=== PATIENT | male | born 1940 | race Caucasian/White ===

== ENCOUNTER 2017-08-02 11:00 | Outpatient (RCR) | payer MEDICARE, OTHER, SELFPAY | END 2017-08-02 13:00 | disposition home or self-care (01) | LOC: PT 11:00 | PROVIDERS: Family Provider Internal Medicine Adolescent Medicine; PCP Internal Medicine Adolescent Medicine; Visit Provider Internal Medicine Adolescent Medicine | DX: M16.12 Unilateral primary osteoarthritis, left hip (principal) | CPT/HCPCS: 97010; 97033; 97110 ==

== ENCOUNTER → 2017-12-09 08:55 | Outpatient (CLI) | payer MEDICARE, OTHER, SELFPAY ==
[2017-12-09 09:18] LABS: Blood Urea Nitrogen 14 mg/dL (7-18); Creatinine,Serum 1.04 mg/dL (0.70-1.30); Estimated Glomerular Filt Rate 69 ml/min (>60); GFR (African American) 83 ML/MIN (>60)
--- NOTE | 2017-12-09 09:24 | CT_ITS ---
CT abdomen pelvis wo/w con CLINICAL HISTORY: Generalized abdominal pain, nausea vomiting and diarrhea and hematuria TECHNIQUE: Axial images obtained with sagittal and coronal reformats. All CT scans at this facility use one or more dose reduction techniques, viz.: automated exposure control; ma/kV adjustment per patient size (including targeted exams where dose is matched to indication; i.e. head) or iterative reconstruction technique. COMPARISON: CT scan abdomen pelvis stone protocol 09/21/2011 PROCEDURE: IV contrast only was used FINDINGS: Lung bases: There is mild post inflammatory scarring in both lower lobes and posterior gutters. ABDOMEN: Liver: No masses or biliary dilatation. Gallbladder: Nondistended. No radio opaque stones. Pancreas: No masses or peripancreatic fluid collections. Spleen: Unremarkable. Adrenals: Unremarkable Kidneys/ureters: Both kidneys are grossly normal in size of the right kidney is slightly smaller than left. There is prominent pyelocalyectasis of the left collecting system and there is approximate 1 cm calculus sitting at the UP junction. The right kidney and right renal pelvis are grossly normal. Neither ureter is dilated. There are multiple calcination both sides the pelvis likely phleboliths. These were seen on the previous CT exam. . Stomach bowel: Nondistended. No obvious mass or thickening, there is moderate stool and gas seen throughout the colon. The small bowel is grossly normal.. Peritoneum: No abnormal fluid collections. No obvious inflammatory changes. Lymph nodes: No enlarged lymph nodes apparent. Vasculature: No evidence of abdominal aortic aneurysm. There is prominent diffuse arteriosclerotic calcification of the infrarenal aorta and proximal iliac arteries but there is no aneurysm. No retroperitoneal hemorrhage evident. Bones: There is moderate multilevel degenerative changes of the lower thoracic and lumbar spine. PELVIS: Reproductive: Unremarkable, the prostate is moderately enlarged Bladder: Moderately distended with no calculi seen. There is a small diverticulum right side of the bladder measuring 1.8 cm. Appendix: No findings to suggest acute appendicitis. IMPRESSION: Moderate obstructive uropathy left kidney secondary to 1 cm calculus sitting at the UPJ, no other significant abdominal or pelvic pathology identified
--- NOTE | 2017-12-09 09:47 | HMH.ITSHM ---
MYRBETRIQ,AMLODIPINE METOPROLOL,LISINOPRIL,ASA ROCHLORIDE POT CHL SIMVASTATIN METFORMIN A;;PRPURIONOL RANITINDE
== END ==
PROVIDERS: Family Provider Internal Medicine Adolescent Medicine; PCP Internal Medicine Adolescent Medicine; Visit Provider Urology
DX: R31.9 Hematuria, unspecified (principal)
CPT/HCPCS: 36415; 74170; 82565; 84520; Q9967

== ENCOUNTER → 2018-03-21 10:18 | Outpatient (CLI) | payer MEDICARE, OTHER, SELFPAY ==
--- NOTE | 2018-03-21 10:21 | XR_ITS ---
XR KUB HISTORY: Follow-up nephrolithiasis ITS.REASON: Kidney Stones ORDERING PHYSICIAN: Devon Linares MD PATIENT AGE: 77 years COMPARISON: 12/09/2017 FINDINGS: The previous CT scan demonstrated a 9 mm calculus in the left ureteropelvic junction. That is no longer apparent. Multiple pelvic calcifications are present. There are osteoarthritic changes of the hips and there is osteophytosis with ankylosis of the thoracic and lumbar spine. No obvious renal or ureteral calculi. IMPRESSION: 1. No obvious renal or ureteral calculi. 2. Previously noted left UPJ stone no longer apparent
== END ==
PROVIDERS: PCP Internal Medicine Adolescent Medicine; Visit Provider Urology
DX: N20.0 Calculus of kidney (principal)
CPT/HCPCS: 74018

== ENCOUNTER → 2018-07-18 11:07 | Outpatient (CLI) | payer MEDICARE, OTHER, SELFPAY ==
--- NOTE | 2018-07-18 11:12 | XR_ITS ---
XR KUB HISTORY: ITS.REASON: Kidney Stones ORDERING PHYSICIAN: Devon Linares MD PATIENT AGE: 77 years COMPARISON: 03/21/2018 FINDINGS: A 4 mm calcific density overlies the lower pole the left kidney. There are multiple pelvic phleboliths. Degenerative changes are present in the hips and spine. IMPRESSION: 4 mm left nephrolithiasis
== END ==
PROVIDERS: PCP Internal Medicine Adolescent Medicine; Visit Provider Urology
DX: N20.0 Calculus of kidney (principal)
CPT/HCPCS: 74018

== ENCOUNTER → 2019-01-16 12:01 | Outpatient (CLI) | payer MEDICARE, OTHER, SELFPAY ==
--- NOTE | 2019-01-16 12:06 | XR_ITS ---
PROCEDURE: XR KUB CLINICAL INDICATION: kidney stones COMPARISON: ABDPELWW CT abdomen pelvis wo/w con from 12/09/2017 FINDINGS: There is a 4 mm calcific density in the left mid abdominal region consistent with left renal stone. Multiple pelvic phleboliths are present. Bridging osteophyte is present to the left at L3-L4. Degenerative disc disease is present at the lumbosacral junction and there are degenerative changes of the hips IMPRESSION: Left nephrolithiasis Dictated by: Grayson Maldonado MD 01/16/2019 12:42 Signed by: <Electronically signed by Grayson Maldonado MD in [place]> 01/16/2019 12:42
== END ==
PROVIDERS: PCP Internal Medicine Adolescent Medicine; Visit Provider Urology
DX: N20.0 Calculus of kidney (principal)
CPT/HCPCS: 74018

== ENCOUNTER → 2019-07-24 13:29 | Outpatient (CLI) | payer MEDICARE, OTHER, SELFPAY ==
--- NOTE | 2019-07-24 13:37 | XR_ITS ---
PROCEDURE: XR KUB CLINICAL INDICATION: kidney stone Left flank pain COMPARISON: ABDPELWW CT abdomen pelvis wo/w con from 12/09/2017 FINDINGS: There is a 4 mm stone overlying the mid polar region of the left kidney. There are multiple pelvic calcifications consistent with phleboliths. Exclude the possibility of a ureteral stone. Degenerative changes of the lumbar spine with flowing osteophytes on the left at L3-L4. Degenerative changes of the hips. IMPRESSION: Left nephrolithiasis Dictated by: Grayson Maldonado MD 07/24/2019 17:42 Electronically signed by Grayson Maldonado MD in [place] 07/24/2019 17:42
== END ==
PROVIDERS: PCP Internal Medicine Adolescent Medicine; Visit Provider Urology
DX: N20.0 Calculus of kidney (principal)
CPT/HCPCS: 74018

== ENCOUNTER → 2020-09-23 19:10 | Outpatient (CLI) | payer MEDICARE, OTHER, SELFPAY ==
[2020-09-23 19:22] LABS: Basophils # 0.1 K/mm3 (0-0.2); Basophils % 0.6 % (0.1-2.0); Eosinophils # 0.3 K/mm3 (0.0-0.4); Eosinophils % 3.6 % (0.1-12.0); Hematocrit 47.4 % (42.0-52.0); Hemoglobin 15.1 g/dL (14.1-18.0); Lymphocytes # 2.2 K/mm3 (0.7-4.5); Lymphocytes % 28.5 % (10-50); Mean Corpuscular HGB Conc 31.8 g/dL (31.8-35.4); Mean Corpuscular Hemoglobin 29.4 pg (27.0-31.2); Mean Corpuscular Volume 92.4 fl (80-94); Mean Platelet Volume 10.2 fl (7.4-10.4); Monocytes # 0.4 K/mm3 (0.1-1.0); Neutrophils # 4.8 K/mm3 (1.8-7.8); Neutrophils % 62.3 % (37.0-80.0); Platelet Count 159 K/mm3 (142-424); Red Blood Count 5.13 M/mm3 (4.60-6.20); White Blood Count 7.7 K/mm3 (4.8-10.8)
[2020-09-23 19:54] LABS: Alanine Aminotransferase 14 U/L (12-78); Albumin/Globulin Ratio 1.7 (1.1-1.8); Alkaline Phosphatase 80 U/L (38-126); Anion Gap 12.2 mEq/L (5-15); Aspartate Amino Transferase 21 U/L (17-59); Bilirubin,Total 0.7 mg/dl (0.2-1.3); Blood Urea Nitrogen 20 mg/dl (9-20); Calcium 9.1 mg/dl (8.4-10.2); Carbon Dioxide 24 mmol/L (22.0-30.0); Chloride 109 mmol/L (98-107); Chol/HDL Ratio 4.2 (1-3.5); Cholesterol 143 mg/dl (140-200); Estimated Glomerular Filt Rate 72 ml/min (>60); GFR (African American) 87 ML/MIN (>60); Globulin 2.3 g/dL (1.3-3.2); Glucose 123 mg/dl (74-100); HDL Cholesterol 34 mg/dl (40-60); Potassium 4.2 mmoL/L (3.5-5.1); Sodium 141 mmol/L (136-145); Total Protein,Serum 6.3 g/dl (6.3-8.2); Triglycerides 141 mg/dl (30-150); Uric Acid 5.6 mg/dl (3.5-8.5); VLDL Cholesterol 28 mg/dL (0-40)
[2020-09-23 19:56] LABS: Hemoglobin A1C 6.1 % (4.0-6.0)
[2020-09-23 20:05] LABS: Direct LDL Cholesterol 83.96 mg/dL (100-129)
== END ==
PROVIDERS: Visit Provider Internal Medicine Adolescent Medicine
DX: E78.5 Hyperlipidemia, unspecified (principal); E11.69 Type 2 diabetes mellitus with other specified complication; M1A.0710 Idiopathic chronic gout, right ankle and foot, without tophus (tophi)
CPT/HCPCS: 80053; 80061; 83036; 84550; 85025

== ENCOUNTER → 2021-04-20 16:38 | Outpatient (CLI) | payer MEDICARE, OTHER, SELFPAY ==
[2021-04-20 17:31] LABS: Alanine Aminotransferase 9 U/L (12-78); Albumin Level 3.5 g/dl (3.5-5.0); Albumin/Globulin Ratio 1.5 (1.1-1.8); Alkaline Phosphatase 66 U/L (38-126); Anion Gap 10.7 mEq/L (5-15); Aspartate Amino Transferase 21 U/L (17-59); Bilirubin,Total 0.3 mg/dl (0.2-1.3); Blood Urea Nitrogen 17 mg/dl (9-20); Calcium 8.7 mg/dl (8.4-10.2); Carbon Dioxide 28 mmol/L (22.0-30.0); Chloride 110 mmol/L (98-107); Estimated Glomerular Filt Rate 58 ml/min (>60); GFR (African American) 70 ML/MIN (>60); Globulin 2.3 g/dL (1.3-3.2); Glucose 135 mg/dl (74-100); Potassium 4.7 mmoL/L (3.5-5.1); Sodium 144 mmol/L (136-145); Total Protein,Serum 5.8 g/dl (6.3-8.2)
[2021-04-20 18:13] LABS: Hemoglobin A1C 5.4 % (4.0-6.0)
[2021-04-20 18:55] LABS: Basophils % 0.7 % (0.1-2.0); Eosinophils # 0.1 K/mm3 (0.0-0.4); Eosinophils % 1.5 % (0.1-12.0); Hematocrit 47.4 % (42.0-52.0); Hemoglobin 14.8 g/dL (14.1-18.0); Lymphocytes # 1.7 K/mm3 (0.7-4.5); Lymphocytes % 26.9 % (10-50); Mean Corpuscular HGB Conc 31.3 g/dL (31.8-35.4); Mean Corpuscular Volume 95.9 fl (80-94); Mean Platelet Volume 10.3 fl (7.4-10.4); Monocytes # 0.4 K/mm3 (0.1-1.0); Monocytes % 5.4 % (1.7-9.3); Neutrophils # 4.3 K/mm3 (1.8-7.8); Neutrophils % 65.6 % (37.0-80.0); Platelet Count 159 K/mm3 (142-424); Red Blood Count 4.95 M/mm3 (4.60-6.20); Red Cell Distribution Width 15.3 % (11.5-17.5); White Blood Count 6.5 K/mm3 (4.8-10.8)
== END ==
PROVIDERS: Visit Provider Internal Medicine Adolescent Medicine
DX: R73.9 Hyperglycemia, unspecified (principal)
CPT/HCPCS: 80053; 83036; 85025

== ENCOUNTER 2021-05-17 00:56 | Inpatient (IN) | payer MEDICARE, OTHER, SELFPAY ==
[2021-05-17] VITALS (33 sets, daily range): BP systolic 132–193; BP diastolic 54–95; PULSE 64–90; RESP 15–18; TEMP 36.5–36.9; O2SAT 96–100; BMI 28.0; BMI 27.2; BMI 24.8
--- NOTE | 2021-05-17 01:03 | CT_ITS ---
PROCEDURE INFORMATION: Exam: CT Abdomen And Pelvis With Contrast Exam date and time: 05/17/2021 1:03 AM Age: 80 years old Clinical indication: Abdominal pain; Generalized; Additional info: Pain and distention TECHNIQUE: Imaging protocol: Computed tomography of the abdomen and pelvis with contrast. Radiation optimization: All CT scans at this facility use at least one of these dose optimization techniques: automated exposure control; mA and/or kV adjustment per patient size (includes targeted exams where dose is matched to clinical indication); or iterative reconstruction. Contrast material: ISOVUE; Contrast volume: 75 ml; Contrast route: IV; COMPARISON: ABDPELWW CT abdomen pelvis wo/w con 12/09/2017 9:33 AM FINDINGS: Lungs: Nonspecific bibasilar opacities, favoring atelectasis or pneumonia. Several pulmonary granulomas. Heart: Trace pericardial effusion. Diaphragm: Large hiatal hernia. Liver: No suspicious mass. Gallbladder and bile ducts: Trace intrahepatic biliary duct prominence. Pancreas: No ductal dilation. No peripancreatic inflammatory changes. Spleen: Several splenic granulomas. Adrenal glands: No mass. Kidneys and ureters: Nonobstructing calculus in the left kidney. [id number] left-sided hydroureteronephrosis. Partially exophytic solid lesion in the left posterior kidney measuring up to 4.0 cm, consistent with renal cell carcinoma. Stomach and bowel: Colonic diverticulosis without evidence of acute diverticulitis. The stomach is distended. Multiple distended proximal and mid small bowel loops measuring up to 3.5 cm consistent with small-bowel obstruction, the transition point is not identified. Appendix: The appendix is not identified, but there is no pericecal inflammatory changes. Intraperitoneal space: No free air. Small to moderate volume pelvic ascites. Vasculature: Multiple phleboliths in the pelvis. Atherosclerotic calcifications. No abdominal aortic aneurysm. Lymph nodes: No enlarged lymph nodes. Urinary bladder: Several urinary bladder wall diverticula. Reproductive: The prostate is prominent size. Bones/joints: Osteopenia. Soft tissues: No suspicious mass. IMPRESSION: 1. Multiple distended proximal and mid small bowel loops measuring up to 3.5 cm consistent with small-bowel obstruction, the transition point is not identified. 2. Partially exophytic solid lesion in the left posterior kidney measuring up to 4.0 cm, consistent with renal cell carcinoma. 3. Nonspecific bibasilar opacities, favoring atelectasis or pneumonia. Recommend imaging follow-up until complete resolution. 4. Ezgk-ex-[id number] left-sided hydroureteronephrosis. 5. Small to moderate volume pelvic ascites. 6. The stomach is distended.
[2021-05-17 01:13] LABS: Basophils # 0.1 K/mm3 (0-0.2); Basophils % 0.5 % (0.1-2.0); Eosinophils # 0.1 K/mm3 (0.0-0.4); Eosinophils % 0.5 % (0.1-12.0); Hematocrit 55.4 % (42.0-52.0); Hemoglobin 16.7 g/dL (14.1-18.0); Lymphocytes % 14.7 % (10-50); Mean Corpuscular HGB Conc 30.2 g/dL (31.8-35.4); Mean Corpuscular Hemoglobin 29.5 pg (27.0-31.2); Mean Corpuscular Volume 97.8 fl (80-94); Monocytes # 0.5 K/mm3 (0.1-1.0); Monocytes % 3.8 % (1.7-9.3); Neutrophils # 11.2 K/mm3 (1.8-7.8); Neutrophils % 80.5 % (37.0-80.0); Platelet Count 177 K/mm3 (142-424); Red Blood Count 5.67 M/mm3 (4.60-6.20); Red Cell Distribution Width 14.8 % (11.5-17.5); White Blood Count 13.9 K/mm3 (4.8-10.8)
[2021-05-17 01:14] LABS: Alanine Aminotransferase 21 U/L (12-78); Albumin Level 4.3 g/dl (3.5-5.0); Albumin/Globulin Ratio 1.7 (1.1-1.8); Alkaline Phosphatase 80 U/L (38-126); Anion Gap 13.6 mEq/L (5-15); Aspartate Amino Transferase 24 U/L (17-59); Bilirubin,Total 0.5 mg/dl (0.2-1.3); Blood Urea Nitrogen 24 mg/dl (9-20); Carbon Dioxide 28 mmol/L (22.0-30.0); Chloride 107 mmol/L (98-107); Creatinine Clearance Estimated 69 mL/min (50-200); Estimated Glomerular Filt Rate 72 ml/min (>60); GFR (African American) 87 ML/MIN (>60); Globulin 2.6 g/dL (1.3-3.2); Glucose 146 mg/dl (74-100); Lipase 92 U/L (23-300); Potassium 3.6 mmoL/L (3.5-5.1); Sodium 145 mmol/L (136-145); Total Protein,Serum 6.9 g/dl (6.3-8.2)
[2021-05-17 01:19] LABS: C-Reactive Protein 1.1 mg/L (0-4)
--- NOTE | 2021-05-17 01:23 | HMH.EDNVD ---
ED Disposition Clinical Impression: SBO (small bowel obstruction), Hiatal hernia, Hydroureteronephrosis, Renal mass, left, Diverticulosis, RBBB (right bundle branch block with left anterior fascicular block) Disposition: Admitted As Inpatient Condition on Discharge: Fair Instructions: DI for Acute Abdominal Pain Referrals: Willam Raygoza MD [Primary Care Provider] - - Critical Care Critical Care Time: No Attestation: On 05/17/21, the high probability of a clinically significant, sudden or life threatening deterioration of the following system(s) required my full and direct attention, intervention and personal management. The time I documented below is in addition to time spent performing reported procedures but includes the following listed in this critical care notation. Medical Decision Making - Medical Records Medical records reviewed: Yes: I reviewed the patient's medical records. - Grady Inquiry Pt receiving controlled substance: No Vital Signs: 05/17/21 00:49 05/17/21 00:59 05/17/21 01:00 Temperature 98.0 F Temperature Source Oral Pulse Rate 64 66 Pulse Rate [Apical] 70 Respiratory Rate 18 17 18 Blood Pressure 163/81 H 154/73 H Blood Pressure [Right Arm] 154/73 H Blood Pressure Mean 91 86 Blood Pressure Mean [Right Arm] 100 Blood Pressure Source Blood Pressure Source [Right Arm] Automatic Cuff Blood Pressure Position Blood Pressure Position [Right Arm] Sitting 02 Sat by Pulse Oximetry 99 98 98 Oxygen Delivery Method Room Air 05/17/21 01:49 05/17/21 01:51 05/17/21 02:01 Temperature Temperature Source Pulse Rate 69 65 69 Pulse Rate [Apical] Respiratory Rate 17 16 18 Blood Pressure 132/54 L 132/54 L 153/72 H Blood Pressure [Right Arm] Blood Pressure Mean 80 86 Blood Pressure Mean [Right Arm] Blood Pressure Source Automatic Cuff Blood Pressure Source [Right Arm] Blood Pressure Position Supine Blood Pressure Position [Right Arm] 02 Sat by Pulse Oximetry 98 99 98 Oxygen Delivery Method Room Air 05/17/21 02:19 05/17/21 02:31 05/17/21 03:01 Temperature Temperature Source Pulse Rate 75 76 75 Pulse Rate [Apical] Respiratory Rate 18 16 Blood Pressure 153/72 H 154/77 H 154/77 H Blood Pressure [Right Arm] Blood Pressure Mean 102 Blood Pressure Mean [Right Arm] Blood Pressure Source Automatic Cuff Automatic Cuff Blood Pressure Source [Right Arm] Blood Pressure Position Supine Sitting Blood Pressure Position [Right Arm] 02 Sat by Pulse Oximetry 98 98 97 Oxygen Delivery Method Room Air Room Air 05/17/21 03:23 05/17/21 03:30 05/17/21 03:32 Temperature Temperature Source Pulse Rate 79 78 77 Pulse Rate [Apical] Respiratory Rate 16 17 Blood Pressure 144/73 H 161/83 H 161/83 H Blood Pressure [Right Arm] Blood Pressure Mean 107 109 Blood Pressure Mean [Right Arm] Blood Pressure Source Automatic Cuff Blood Pressure Source [Right Arm] Blood Pressure Position Supine Blood Pressure Position [Right Arm] 02 Sat by Pulse Oximetry 98 98 98 Oxygen Delivery Method Room Air 05/17/21 04:01 05/17/21 04:03 05/17/21 04:30 Temperature Temperature Source Pulse Rate 80 76 75 Pulse Rate [Apical] Respiratory Rate 16 17 15 Blood Pressure 145/80 H 145/80 H 135/69 Blood Pressure [Right Arm] Blood Pressure Mean 101 91 Blood Pressure Mean [Right Arm] Blood Pressure Source Automatic Cuff Blood Pressure Source [Right Arm] Blood Pressure Position Supine Blood Pressure Position [Right Arm] 02 Sat by Pulse Oximetry 97 97 98 Oxygen Delivery Method Room Air 05/17/21 04:31 05/17/21 05:03 05/17/21 05:28 Temperature Temperature Source Pulse Rate 82 79 81 Pulse Rate [Apical] Respiratory Rate 16 Blood Pressure 135/69 146/88 H 146/88 H Blood Pressure [Right Arm] Blood Pressure Mean 107 Blood Pressure Mean [Right Arm] Blood Pressure Source Automatic Cuf
[2021-05-17 01:33] LABS: Procalcitonin 0.049 ng/mL (0.0-2.0)
[2021-05-17 01:37] LABS: Erythrocyte Sedimentation Rate 1 mm/hr (0-20)
--- NOTE | 2021-05-17 02:33 | XR_ITS ---
PROCEDURE INFORMATION: Exam: XR Chest Exam date and time: 05/17/2021 2:33 AM Age: 80 years old Clinical indication: Cough and other: Weakness, womiting, abnormal kidney findings on CT abdomen; Additional info: Admit to hospital. Weakness, vomiting, abnormal kidney findings on CT abdomen, cough. TECHNIQUE: Imaging protocol: XR of the chest. Views: 1 view. COMPARISON: CT ABDOMEN PELVIS W CON 05/17/2021 1:31 AM FINDINGS: Lungs: Nonspecific bibasilar opacities, favoring atelectasis or pneumonia. Pleural spaces: No pleural effusion. No pneumothorax. Heart/Mediastinum: Unremarkable cardiomediastinal silhouette. Bones/joints: No acute osseous findings. IMPRESSION: Nonspecific bibasilar opacities, favoring atelectasis or pneumonia. Recommend imaging follow-up until complete resolution.
--- NOTE | 2021-05-17 02:38 | ECG_ITS ---
APPROVED REPORT Exam: Resting ECG HR:73 bpm ECG Measurements Heart Rate 73 AXES SC 162 P 53 QRSd 140 QRS -64 QT 436 T 34 QTc 480 Conclusion Normal sinus rhythm Right bundle branch block Left anterior fascicular block Bifascicular block Abnormal ECG Electronically signed by : Willam Raygoza MD 05/17/2021 09:07:04
[2021-05-17 02:44] LABS: Coronavirus 19, PCR Not Detected (NotDetected); Influenza A, PCR Not Detected (NotDetected); Influenza B, PCR Not Detected (NotDetected)
[2021-05-17 03:23] LABS: Microscopic, Urine URINE MICROSCOPIC (MICROSCOPIC)
[2021-05-17 03:26] LABS: Appearance,Urine CLEAR (Clear); Bilirubin,Urine Negative (Negative); Blood, Urine Negative (Negative); Color,Urine STRAW (Yellow); Glucose,Urine (UA) Negative (Negative); Ketones,Urine Negative (Negative); Leukocyte Esterase,Urine Negative (Negative); Nitrate,Urine Negative (Negative); Protein,Urine Negative (Negative); Specific Gravity, Urine 1.015 (1.005-1.030); Urobilinogen,Urine 0.2 EU/dl (0.2)
[2021-05-17 03:34] LABS: Bacteria,Urine Trace /lpf; Squamous Epithelial Cell,Urine Occasional #/hpf (0-5)
--- NOTE | 2021-05-17 05:30 | PC.NURSE ---
Dr. Rosenberg s/w Dr. Raygoza for admit, House notified
--- NOTE | 2021-05-17 05:38 | PC.NURSE ---
Pt requesting to leave, he would like us to call his brother to come get him. Dr. Chet Raygoza at this time. Updating .
--- NOTE | 2021-05-17 05:48 | PC.NURSE ---
Attempted to call pt's brother BRITTANEY w/ no answer
--- NOTE | 2021-05-17 06:33 | PC.NURSE ---
Called pt's brother again, still no answer. Pt updated on this.
--- NOTE | 2021-05-17 08:14 | PC.NURSE ---
Attempted to call brother, no answer at this time
--- NOTE | 2021-05-17 08:32 | PC.NURSE ---
Dr. Raygoza in speaking with patient
--- NOTE | 2021-05-17 08:36 | PC.NURSE ---
Dr. Raygoza came out and advised pt was agreeable to stay at this time.
--- NOTE | 2021-05-17 08:39 | PC.NURSE ---
Notified house of admission
--- NOTE | 2021-05-17 09:01 | HMH.HP ---
*Admission Date: 05/17/21 *Chief complaint: Nausea/vomiting *History of present illness: 80-year-old white male with history of excellent functional status over the past several years presented to the emergency department with complaints of nausea and vomiting, notes that he had a bowel movement approximately 1 day ago, but since that time he is felt like his stomach is bloated and very uncomfortable. In the emergency department evaluation revealed evidence of small bowel obstruction on CT scanning, no anatomical transition point was identified, the patient was also found to have a left renal mass worrisome for renal cell cancer as well as hydronephrosis with nonobstructing renal stones. Patient initially wanted to go home, but after I talked to them personally and told him I would like him to stay and get evaluated for these conditions he agreed to stay in evaluate for small bowel obstruction, have some IV fluids and bowel rest as well as urology consultation. [facility] History I have reviewed the patient's past medical history: Yes Medical History: Reports:: Anxiety, Diabetes Mellitus Type 2, Hyperlipidemia, Hypertension *Have you ever received a pneumonia vaccine?: Yes *Have you received a flu vaccine this season?: Yes Other Surgeries: Yes: No Previous Surgery, Other - *Social History Smoking Status: Never smoker Alcohol Intake: never Substance Use Type: denies use *Occupational Status:: retired *Travel in the last 8 weeks: None - Psychiatric History Pschychiatric History:: Reports:: Anxiety Family Hx:: No significant family history Review of Systems - Review of Systems Review of systems:: pertinent systems reviewed and negative unless documented below - *Neurologic Denies localized weakness, Denies seizure-like activity Meds Home Medications Medication Instructions Recorded Confirmed Type allopurinol 100 mg tablet 100 mg PO BID 90 Days #180 01/10/18 05/17/21 History amlodipine 5 mg tablet 5 mg PO DAILY 90 Days #90 01/10/18 05/17/21 History lisinopril 5 mg tablet 5 mg PO DAILY 90 Days #90 01/10/18 05/17/21 History metoprolol succinate 200 mg 200 mg PO DAILY 90 Days #90 01/10/18 05/17/21 History tablet,extended release 24 hr potassium chloride 20 mEq 20 mg PO BID 90 Days #180 01/10/18 05/17/21 History tablet,extended release(part/cryst) simvastatin 20 mg tablet 20 mg PO DAILY 90 Days #90 01/10/18 05/17/21 History tamsulosin 0.4 mg capsule 0.4 mg PO DAILY 90 Days #90 01/10/18 05/17/21 History Famotidine [Acid Junior Technical Writer] 20 mg PO DAILY 05/17/21 05/17/21 History Allergies Allergy/AdvReac Type Severity Reaction Status Date / Time NO KNOWN ALLERGIES Allergy Uncoded 07/24/19 14:32 Exam Vital signs and Labs for Last 24 Hours: Temp Pulse Resp BP Pulse Ox 98.0 F 86 16 139/75 98 05/17/21 00:49 05/17/21 08:01 05/17/21 08:01 05/17/21 08:01 05/17/21 08:01 Laboratory Results - last 24 hr 05/17/21 00:58: WBC 13.9 H, RBC 5.67, Hgb 16.7, Hct 55.4 H, MCV 97.8 H, MCH 29.5, MCHC 30.2 L, RDW 14.8, Plt Count 177, MPV 10.0, Neut % (Auto) 80.5 H, Lymph % (Auto) 14.7, [place] % (Auto) 3.8, Eos % (Auto) 0.5, Baso % (Auto) 0.5, Neut # (Auto) 11.2 H, Lymph # (Auto) 2.0, [place] # (Auto) 0.5, Eos # (Auto) 0.1, Baso # (Auto) 0.1, ESR 1 05/17/21 00:58: Sodium 145, Potassium 3.6, Chloride 107, Carbon Dioxide 28, Anion Gap 13.6, BUN 24 H, Creatinine 1.00, Estimated Creat Clear 69, Estimated GFR 72, Est GFR ( Amer) 87, Glucose 146 H, Calcium 9.0, Total Bilirubin 0.5, AST 24, ALT 21, Alkaline Phosphatase 80, C-Reactive Protein 1.1, Total Protein 6.9, Albumin 4.3, Globulin 2.6, Albumin/Globulin Ratio 1.7, Procalcitonin 0.049 05/17/21 00:58: Lipase 92 05/17/21 02:40: SARS-CoV-2 (PCR) Not detected, Influenza A Untype (PCR) Not detected, Influenza Type B (PCR) Not detected 05/17/21 02:58: Urine Color Straw, Urine Appearance Clear, Urine pH 6.0, Ur Specific [place] 1.015, Urine Protein Negative, Urine Glucose (UA) Negative, Urine Ket
--- NOTE | 2021-05-17 09:11 | PC.NURSE ---
Dr. Feng at bedside
--- NOTE | 2021-05-17 09:26 | HMH.GSCON ---
*Admission Date: 05/17/21 *Reason for consult:: Small bowel obstruction *History of present illness: This is an 80-year-old gentleman who presented to the emergency department overnight with increasing abdominal pain with associated nausea/vomiting. A CT scan revealed changes consistent with partial/developing small bowel obstruction. No obvious transition point was noted. The lesion concerning for possible left renal cell carcinoma was also noted. He was admitted for IV fluids, general surgical, and urologic consultation. Currently he feels okay...better than before . No significant abdominal pain at this time. His last bowel movement was yesterday. He states that he is uncertain with regard to flatus. No fevers. No diarrhea. Review of Systems - Constitutional Denies chills - *Respiratory Denies cough - *Gastrointestinal Reports abdominal pain, Reports nausea, Reports vomiting Comments: All abdominal symptoms improved - *Neurologic Denies localized weakness, Denies seizure-like activity [facility] History Medical History: Reports:: Anxiety, Diabetes Mellitus Type 2, Hyperlipidemia, Hypertension *Have you ever received a pneumonia vaccine?: Yes *Have you received a flu vaccine this season?: Yes Other Surgeries: Yes: No Previous Surgery, Other - *Social History Smoking Status: Never smoker Alcohol Intake: never Substance Use Type: denies use *Occupational Status:: retired *Travel in the last 8 weeks: None - Psychiatric History Pschychiatric History:: Reports:: Anxiety Family Hx:: No significant family history Meds Home Medications Medication Instructions Recorded Confirmed Type allopurinol 100 mg tablet 100 mg PO BID 90 Days #180 01/10/18 05/17/21 History amlodipine 5 mg tablet 5 mg PO DAILY 90 Days #90 01/10/18 05/17/21 History lisinopril 5 mg tablet 5 mg PO DAILY 90 Days #90 01/10/18 05/17/21 History metoprolol succinate 200 mg 200 mg PO DAILY 90 Days #90 01/10/18 05/17/21 History tablet,extended release 24 hr potassium chloride 20 mEq 20 mg PO BID 90 Days #180 01/10/18 05/17/21 History tablet,extended release(part/cryst) simvastatin 20 mg tablet 20 mg PO DAILY 90 Days #90 01/10/18 05/17/21 History tamsulosin 0.4 mg capsule 0.4 mg PO DAILY 90 Days #90 01/10/18 05/17/21 History Famotidine [Acid Parking Enforcement Specialist] 20 mg PO DAILY 05/17/21 05/17/21 History Allergies Allergy/AdvReac Type Severity Reaction Status Date / Time NO KNOWN ALLERGIES Allergy Uncoded 07/24/19 14:32 Exam Vital signs and Labs for Last 24 Hours: Temp Pulse Resp BP Pulse Ox 98.0 F 86 16 139/75 98 05/17/21 00:49 05/17/21 08:01 05/17/21 08:01 05/17/21 08:01 05/17/21 08:01 Laboratory Results - last 24 hr 05/17/21 00:58: WBC 13.9 H, RBC 5.67, Hgb 16.7, Hct 55.4 H, MCV 97.8 H, MCH 29.5, MCHC 30.2 L, RDW 14.8, Plt Count 177, MPV 10.0, Neut % (Auto) 80.5 H, Lymph % (Auto) 14.7, [place] % (Auto) 3.8, Eos % (Auto) 0.5, Baso % (Auto) 0.5, Neut # (Auto) 11.2 H, Lymph # (Auto) 2.0, [place] # (Auto) 0.5, Eos # (Auto) 0.1, Baso # (Auto) 0.1, ESR 1 05/17/21 00:58: Sodium 145, Potassium 3.6, Chloride 107, Carbon Dioxide 28, Anion Gap 13.6, BUN 24 H, Creatinine 1.00, Estimated Creat Clear 69, Estimated GFR 72, Est GFR ( Amer) 87, Glucose 146 H, Calcium 9.0, Total Bilirubin 0.5, AST 24, ALT 21, Alkaline Phosphatase 80, C-Reactive Protein 1.1, Total Protein 6.9, Albumin 4.3, Globulin 2.6, Albumin/Globulin Ratio 1.7, Procalcitonin 0.049 05/17/21 00:58: Lipase 92 05/17/21 02:40: SARS-CoV-2 (PCR) Not detected, Influenza A Untype (PCR) Not detected, Influenza Type B (PCR) Not detected 05/17/21 02:58: Urine Color Straw, Urine Appearance Clear, Urine pH 6.0, Ur Specific [place] 1.015, Urine Protein Negative, Urine Glucose (UA) Negative, Urine Ketones Negative, Urine Blood Negative, Urine Nitrate Negative, Urine Bilirubin Negative, Urine Urobilinogen 0.2, Ur Leukocyte Esterase Negative, Ur Squamous Epith Cells Occasional, Urine Bacteria Trace
--- NOTE | 2021-05-17 10:34 | PC.NURSE ---
PT states he is unsure about a NG tube, states he wants to think about it for a little longer
--- NOTE | 2021-05-17 12:20 | PC.NURSE ---
Pt had agreed to NG tube, went in to place it and he advised that he wanted to think about it some more before he decided/.
--- NOTE | 2021-05-17 12:40 | PC.NURSE ---
Report given to Elle MCKINNEY
--- NOTE | 2021-05-17 17:40 | XR_ITS ---
PROCEDURE INFORMATION: Exam: XR Chest Exam date and time: 05/17/2021 5:40 PM Age: 80 years old Clinical indication: Device placement; Patient HX: Evaluate for ng tube placement. TECHNIQUE: Imaging protocol: XR of the chest. Views: 1 view. Total images: 2 COMPARISON: CR XR CHEST PORTABLE 05/17/2021 3:05 AM FINDINGS: Tubes, catheters and devices: Nasogastric tube tip in the proximal gastric lumen, consider advancement by 5 cm. Lungs: Pulmonary vasculature grossly normal. Granulomatous calcification in the peripheral right mid lung unchanged. Mild alveolar densities in the left lung base and medial right base are unchanged consistent with atelectasis or pneumonia. Pleural spaces: No pleural effusion. No pneumothorax. Heart/Mediastinum: Heart size normal. No tracheal/mediastinal shift. Vasculature: The aorta demonstrates mild ectasia/tortuosity and mild calcific atherosclerosis. Bones/joints: No acute osseous abnormalities are identified. Osteopenia. IMPRESSION: 1. Nasogastric tube tip in the proximal gastric lumen, consider advancement by 5 cm. 2. Patchy bilateral basilar alveolar opacities consistent with atelectasis or pneumonia.
--- NOTE | 2021-05-17 18:36 | PC.NURSE ---
PT IS RESTING IN BED. ALERT AND ORIENTED X4. PT IS NPO AT THIS TIME. PT INITIALLY REFUSED NG TUBE PLACEMENT BUT WITH SOME ENCOURAGEMENT AND EDUCATING PT WAS FINALLY AGREEABLE. PT HAS A 16 F NG SECURED AT THE LEFT NARE 62 . CONNECTED TO LOW WALL SUCTION. BROWN/BLOOD TINGED/COFFEE GROUND DRAINAGE NOTED. CXR ORDERED TO CONFIRM PLACEMENT. LUNG SOUNDS CLEAR. ABDOMEN SOFT/NON TENDER WITH MILD DISTENTION. PT STATED HIS LAST BOWEL MOVEMENT WAS YESTERDAY. PT STATED HE HAS NOT VOMITED SINCE ARRIVING TO TO THE HOSPITAL. WILL CONTINUE TO MONITOR.
--- NOTE | 2021-05-17 21:30 | XR_ITS ---
PROCEDURE INFORMATION: Exam: XR Abdomen Exam date and time: 05/17/2021 9:30 PM Age: 80 years old Clinical indication: Other: Small bowel obstruction; Additional info: F/u after gastrografin dose TECHNIQUE: Imaging protocol: XR of the abdomen. Views: 2 Views. Upright and supine views. Total images: 3 COMPARISON: CT ABDOMEN PELVIS W CON 05/17/2021 1:31 AM FINDINGS: Tubes, catheters and devices: Nasogastric tube in place with its tip in the gastric fundus. Heart/Mediastinum: Heart size normal. Lungs: Granulomatous calcification in the left lung base. Gastrointestinal tract: There was previously administered oral contrast present throughout the small bowel, also extending throughout the large bowel to the level of the descending colon. This suggests partial or intermittent small bowel obstruction rather than complete. No evidence of perforation. No evidence of pneumatosis or portal gas. Intraperitoneal space: No free air is evident. Organs: No evidence of organomegaly. Vasculature: The aorta demonstrates mild ectasia/tortuosity and moderate calcific atherosclerosis. Bones/joints: No acute osseous abnormalities. Osteopenia. Moderate lumbar spondylosis. Other findings: No pathological calcifications. No gross soft tissue masses. IMPRESSION: 1. Continued dilatation of the mid and proximal small bowel concerning for small bowel obstruction, however the previously administered oral contrast extends into the colon, consistent with partial or intermittent small bowel obstruction rather than complete. 2. No evidence of perforation. 3. Nasogastric tube tip in the gastric fundus.
[2021-05-18 03:11] VITALS: BP 159/71; PULSE 78; RESP 17; TEMP 36.5; O2SAT 98
--- NOTE | 2021-05-18 06:00 | XR_ITS ---
PROCEDURE INFORMATION: Exam: XR Complete Acute Abdomen Series Including Chest Exam date and time: 05/18/2021 6:00 AM Age: 80 years old Clinical indication: Other: Small bowel obstruction; Additional info: F/u ileus / sbo 11 hour film post 120 ml gastrografin thru ng tube TECHNIQUE: Imaging protocol: XR complete acute abdomen series, including 2 or more views of the abdomen and a single view chest. COMPARISON: CR XR ABDOMEN MIN 2V 05/17/2021 9:32 PM FINDINGS: Lungs: Normal. No consolidation. Pleural spaces: Normal. No pleural effusions. No pneumothorax. Heart/Mediastinum: Mild cardiomegaly. Gastrointestinal tract: Normal. No bowel dilation. Intraperitoneal space: Normal. No free air. Bones/joints: Normal. No acute fracture. Soft tissues: Normal. IMPRESSION: No acute findings.
--- NOTE | 2021-05-18 07:26 | HMH.GSPN ---
Subjective Patient reports: flatus, bowel movement (Small bowel movement that he describes as dark ) Narrative: Overall, he states that his pain has improved. He continues to have what he describes as soreness throughout his abdomen. No emesis. Currently without nausea. Progress Note: A&P (1) SBO (small bowel obstruction) Status: Acute Assessment and plan: Follow-up abdominal films reveal contrast in the colon/rectum. He likely has some degree of ileus versus partial/resolving obstruction. Nasogastric tube to be removed this morning Cautiously advance to clear liquids without carbonation (2) Hydroureteronephrosis Status: Acute (3) Renal mass, left Status: Acute Assessment and Plan for All Diagnoses:: NOTE: The patient has had what he describes as a small dark bowel movement. Some dark (?blood and bile) and intermittently blood-tinged aspirate noted per nasogastric tube. Follow-up morning hemoglobin PPI Exam Vital signs and Labs for Last 24 Hours: Temp Pulse Resp BP Pulse Ox 97.7 F 78 17 159/71 H 98 05/18/21 03:11 05/18/21 03:11 05/18/21 03:11 05/18/21 03:11 05/18/21 03:11 I & O for Last 24 hours: Intake & Output 05/15/21 05/16/21 05/17/21 05/18/21 11:59 11:59 11:59 11:59 Intake Total 0 / 0 Output Total 450 / 450 Balance -450 / -450 Weight 190 lb 173 lb 6 oz Radiology Reports for the Last 24 Hours: Follow-up abdominal films revealed contrast in the colon/rectum - Constitutional no acute distress - *Routine Respiratory Exam Absent: respiratory distress - *Routine Cardiovascular Exam Absent: tachycardia - *Routine Abdominal Exam Present: soft
[2021-05-18 07:37] VITALS: BP 164/93; PULSE 77; RESP 18; TEMP 36.6; O2SAT 96
[2021-05-18 07:51] LABS: Basophils % 0.6 % (0.1-2.0); Eosinophils # 0.1 K/mm3 (0.0-0.4); Eosinophils % 1.4 % (0.1-12.0); Hematocrit 46.7 % (42.0-52.0); Hemoglobin 14.8 g/dL (14.1-18.0); Lymphocytes # 1.8 K/mm3 (0.7-4.5); Lymphocytes % 22.4 % (10-50); Mean Corpuscular HGB Conc 31.7 g/dL (31.8-35.4); Mean Corpuscular Hemoglobin 30.4 pg (27.0-31.2); Mean Corpuscular Volume 95.7 fl (80-94); Mean Platelet Volume 9.4 fl (7.4-10.4); Monocytes # 0.5 K/mm3 (0.1-1.0); Monocytes % 6.7 % (1.7-9.3); Neutrophils # 5.6 K/mm3 (1.8-7.8); Platelet Count 148 K/mm3 (142-424); Red Blood Count 4.88 M/mm3 (4.60-6.20); Red Cell Distribution Width 14.9 % (11.5-17.5); White Blood Count 8.1 K/mm3 (4.8-10.8)
[2021-05-18 07:57] LABS: Chloride 108 mmol/L (98-107); Potassium 3.7 mmoL/L (3.5-5.1); Sodium 143 mmol/L (136-145)
[2021-05-18 08:01] LABS: Anion Gap 10.7 mEq/L (5-15); Calcium 8.2 mg/dl (8.4-10.2); Carbon Dioxide 28 mmol/L (22.0-30.0); Glucose 114 mg/dl (74-100)
--- NOTE | 2021-05-18 08:02 | P.PN_ITS ---
Internal Medicine - PN: Subj *Date: 05/18/21 *Time: 08:02 Interval history: Patient is about the same today. Does report that he had a small dark stool. Has not vomited but does have an NG in. Surgical note reviewed and appreciated. Exam Vital signs and Labs for Last 24 Hours: Temp Pulse Resp BP Pulse Ox 97.9 F 77 18 164/93 H 96 05/18/21 07:37 05/18/21 07:37 05/18/21 07:37 05/18/21 07:37 05/18/21 07:37 Laboratory Results - last 24 hr 05/18/21 07:22: WBC 8.1 D, RBC 4.88, Hgb 14.8, Hct 46.7, MCV 95.7 H, MCH 30.4, MCHC 31.7 L, RDW 14.9, Plt Count 148, MPV 9.4, Neut % (Auto) 69.0, Lymph % (Auto) 22.4, [place] % (Auto) 6.7, Eos % (Auto) 1.4, Baso % (Auto) 0.6, Neut # (Auto) 5.6, Lymph # (Auto) 1.8, [place] # (Auto) 0.5, Eos # (Auto) 0.1, Baso # (Au to) 0.0 05/18/21 07:22: Sodium 143, Potassium 3.7, Chloride 108 H I & O for Last 24 hours: Intake & Output 05/15/21 05/16/21 05/17/21 05/18/21 11:59 11:59 11:59 11:59 Intake Total 0 / 0 Output Total 450 / 450 Balance -450 / -450 Weight 190 lb 173 lb 6 oz Narrative: Patient is alert and talkative. Anterior lung luque are clear, heart rate regular. Abdomen is distended but soft, some generalized tenderness but no focal tenderness. No edema or clubbing. Neurologically intact. Oropharynx clear. NG tube in good position. Draining some dark fluid in the suction bag. Assessment and Plan (1) SBO (small bowel obstruction) Status: Acute Category: Medical Code(s): K56.609 - Unspecified intestinal obstruction, unspecified as to partial versus complete obstruction (2) Hydroureteronephrosis Status: Acute Category: Medical Code(s): N13.30 - Unspecified hydronephrosis (3) Renal mass, left Status: Acute Category: Medical Code(s): N28.89 - Other specified disorders of kidney and ureter - Assessment and plan all Dx Assessment and Plan for all problems:: Overall stable. Bowel movement encouraging. Contrast present in the lower sigmoid also encouraging. Agree with surgery plan to pull NG and cautiously advance diet.
[2021-05-18 08:06] LABS: Blood Urea Nitrogen 13 mg/dl (9-20); Creatinine Clearance Estimated 63 mL/min (50-200); Estimated Glomerular Filt Rate 93 ml/min (>60); GFR (African American) 112 ML/MIN (>60)
--- NOTE | 2021-05-18 10:06 | HMH.PHAINT ---
MEDICATION RECONCILIATION COMPLETE USING EXTERNAL PHARMACY FILL HISTORY.
--- NOTE | 2021-05-18 10:09 | HMH.PHAVTE ---
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
--- NOTE | 2021-05-18 10:35 | SW/DCPLANNER ---
DR HERNADEZ MADE ROUNDS TODAY AND PATIENT IS BETTER AND THE PLAN IS FOR HIM TO DISCHARGE IN THE AM (BEAU)...
[2021-05-18 12:36] VITALS: BMI 24.7
[2021-05-18 14:59] VITALS: BP 165/87; PULSE 80; RESP 16; TEMP 36.9; O2SAT 97
--- NOTE | 2021-05-18 18:55 | PC.NURSE ---
Pt alert and oriented x 4. Pt refused to take undershirt off or change sheets. Offered several times. Pt did take a basin bath and change gown. Has done well this shift with no apparent issues. CB in reach. NG tube removed this am.
[2021-05-18 19:32] VITALS: BP 187/87; PULSE 83; RESP 18; TEMP 36.5; O2SAT 96
[2021-05-18 20:00] VITALS: O2SAT 97
[2021-05-19 03:50] VITALS: BP 181/90; PULSE 89; RESP 18; TEMP 36.5; O2SAT 98
[2021-05-19 05:08] VITALS: BMI 23.6
--- NOTE | 2021-05-19 05:47 | PC.NURSE ---
pt admitted from med surge to 264, will continue to monitor
--- NOTE | 2021-05-19 06:44 | HMH.GSPN ---
Subjective Narrative: Patient without complaints. Tolerated NG tube out and clear liquid diet. Progress Note: A&P (1) SBO (small bowel obstruction) Status: Acute (2) Hydroureteronephrosis Status: Acute (3) Renal mass, left Status: Acute Assessment and Plan for All Diagnoses:: Advance diet. Exam Vital signs and Labs for Last 24 Hours: Temp Pulse Resp BP Pulse Ox 97.7 F 89 18 181/90 H 98 05/19/21 03:50 05/19/21 03:50 05/19/21 03:50 05/19/21 03:50 05/19/21 03:50 Laboratory Results - last 24 hr 05/18/21 07:22: WBC 8.1 D, RBC 4.88, Hgb 14.8, Hct 46.7, MCV 95.7 H, MCH 30.4, MCHC 31.7 L, RDW 14.9, Plt Count 148, MPV 9.4, Neut % (Auto) 69.0, Lymph % (Auto) 22.4, [place] % (Auto) 6.7, Eos % (Auto) 1.4, Baso % (Auto) 0.6, Neut # (Auto) 5.6, Lymph # (Auto) 1.8, [place] # (Auto) 0.5, Eos # (Auto) 0.1, Baso # (Auto) 0.0 05/18/21 07:22: Sodium 143, Potassium 3.7, Chloride 108 H, Carbon Dioxide 28, Anion Gap 10.7, BUN 13 D, Creatinine 0.80, Estimated Creat Clear 63, Estimated GFR 93, Est GFR ( Amer) 112 D, Glucose 114 H, Calcium 8.2 L I & O for Last 24 hours: Intake & Output 05/16/21 05/17/21 05/18/21 05/19/21 11:59 11:59 11:59 11:59 Intake Total 0 / 0 1360 / 1360 Output Total 1050 / 1050 1350 / 1350 Balance -1050 / -1050 Weight 190 lb 173 lb 6 oz 165 lb 1 oz - *Routine Abdominal Exam Present: soft. Absent: tenderness
[2021-05-19 08:00] VITALS: BP 157/82; PULSE 80; RESP 18; TEMP 36.7; O2SAT 97
--- NOTE | 2021-05-19 09:12 | HMH.DCSUM ---
General - General Admission date:: 05/17/21 Discharge date: 05/19/21 HPI HPI: 80-year-old white male with history of excellent functional status over the past several years presented to the emergency department with complaints of nausea and vomiting, notes that he had a bowel movement approximately 1 day ago, but since that time he is felt like his stomach is bloated and very uncomfortable. In the emergency department evaluation revealed evidence of small bowel obstruction on CT scanning, no anatomical transition point was identified, the patient was also found to have a left renal mass worrisome for renal cell cancer as well as hydronephrosis with nonobstructing renal stones. Patient initially wanted to go home, but after I talked to them personally and told him I would like him to stay and get evaluated for these conditions he agreed to stay in evaluate for small bowel obstruction, have some IV fluids and bowel rest as well as urology consultation. Hospital Course Hospital Course: Patient was admitted, initially required NG tube, which decompressed his stomach, this was removed after 24 hours that he did well with clear liquids, advancing to full liquids last night. Has had several good bowel movements. Now tolerating full liquids fairly well. No vomiting. Has had good gas flatus passage. Patient will be sent home. We will make outpatient appointment with urology for his renal mass. I will see him in my offices in [place] next week. I have started MiraLAX on a daily basis to help him with bowel motility issues. Objective Vital signs: Temp Pulse Resp BP Pulse Ox 98.0 F 80 18 157/82 H 97 05/19/21 08:00 05/19/21 08:00 05/19/21 08:00 05/19/21 08:00 05/19/21 08:00 no acute distress - *Routine HEENT Exam Head: Present: normocephalic Eye: Present: EOMI, PERRL ENT: Present: mucous membranes moist - *Routine Neck Exam Present: supple - *Routine Respiratory Exam Present: CTA bilaterally - *Routine Cardiovascular Exam Present: RRR - *Routine Abdominal Exam Present: soft, normoactive bowel sounds. Absent: tenderness - *Routine Extremities Exam Absent: cyanosis, clubbing, edema - *Routine Skin Exam Present: warm. Absent: rash - Detailed Eye Exam Eyelids: Bilateral normal inspection DS: Diagnosis - Discharge Diagnosis (1) SBO (small bowel obstruction) Status: Resolved (2) Hydroureteronephrosis Status: Acute (3) Renal mass, left Status: Acute Discharge Plan - Patient Discharge Instructions ACTIVITY: Continue current activity DIET: continue same diet Patient Instructions: DI for Small Bowel Obstruction, DI for Hiatal Hernia - Follow up Plan Follow up with: Anup Aranda MD [Staff Physician] - 05/21/21 11:30 am Kaylan Woodard APRN [Nurse Practitioner] - 05/28/21 Disposition: Home, Self-Care Condition at discharge:: Improved Home Medications: Home Medications Medication Instructions Recorded Confirmed Type allopurinol 100 mg tablet 100 mg PO BID 90 Days #180 01/10/18 05/17/21 History amlodipine 5 mg tablet 5 mg PO DAILY 90 Days #90 01/10/18 05/17/21 History lisinopril 5 mg tablet 5 mg PO DAILY 90 Days #90 01/10/18 05/17/21 History metoprolol succinate 200 mg 200 mg PO DAILY 90 Days #90 01/10/18 05/17/21 History tablet,extended release 24 hr potassium chloride 20 mEq 20 mg PO BID 90 Days #180 01/10/18 05/17/21 History tablet,extended release(part/cryst) simvastatin 20 mg tablet 20 mg PO DAILY 90 Days #90 01/10/18 05/17/21 History tamsulosin 0.4 mg capsule 0.4 mg PO DAILY 90 Days #90 01/10/18 05/17/21 History Famotidine [Acid Multimedia Artist] 20 mg PO DAILY 05/17/21 05/17/21 History Metformin HCl [Glucophage 500mg 500 mg PO BIDWMEAL 05/18/21 05/18/21 History Tablet] polyethylene glycoL 3350 [Miralax 17 gm PO DAILY 30 Days #1 unspec 05/19/21 Rx Powder] Prescriptions/Medication Reconciliation: New polyethylene glycoL 3350 [Miralax Powd
== END 2021-05-19 10:00 | disposition home or self-care (01) | DRG 390 ==
LOC: ER 02:39 → 2ND 12:09 → ICU 05-19 05:39
PROVIDERS: Admitting Provider Internal Medicine Adolescent Medicine; Emergency Provider Emergency Medicine; PCP Internal Medicine Adolescent Medicine; Visit Provider Internal Medicine Adolescent Medicine
DX: K56.609 Unspecified intestinal obstruction, unspecified as to partial versus complete obstruction (principal); Z20.822 Contact with and (suspected) exposure to COVID-19; E11.9 Type 2 diabetes mellitus without complications; E78.5 Hyperlipidemia, unspecified; I10 Essential (primary) hypertension; F41.9 Anxiety disorder, unspecified; N28.9 Disorder of kidney and ureter, unspecified
CPT/HCPCS: 36415; 71045; 74019; 74021; 74177; 80048; 80053; 81001; 83690; 84145; 85025; 85651; 86140; 93005; 96365; 96375; 99284; C9803; Q9967; U0003; U0005